=== PATIENT | female | born 1975 | race Hispanic/Latino ===

== ENCOUNTER 2022-02-15 16:10 | Emergency (ER) | payer MEDICAID ==
--- NOTE | 2022-02-15 18:09 | Emergency Department Report ---
ED General Adult HPI - General Chief complaint: Seizure Stated complaint: SEIZURE Time Seen by Provider: 02/15/22 16:48 Source: EMS Mode of arrival: Stretcher Limitations: No Limitations - History of Present Illness Initial comments: Patient is a 46-year-old female who presents with seizure she states that she has had seizures before. She has had 3 in the last month. She is not on any antiseizure epileptic medication. She is currently awake and alert oriented by 3. She denies having any pain no nausea or vomiting. Severity scale (0 -10): 0 - Related Data Previous Rx's Medication Instructions Recorded Last Taken Type levETIRAcetam [Keppra TAB] 500 mg PO BID #60 tablet 02/15/22 Unknown Rx ED Review of Systems ROS: Stated complaint: SEIZURE Other details as noted in HPI Constitutional: denies: chills, fever Eyes: denies: eye pain, eye discharge, vision change ENT: denies: ear pain, throat pain Respiratory: denies: cough, shortness of breath, wheezing Cardiovascular: denies: chest pain, palpitations Endocrine: no symptoms reported Gastrointestinal: denies: abdominal pain, nausea, diarrhea Genitourinary: denies: urgency, dysuria, discharge Musculoskeletal: denies: back pain, joint swelling, arthralgia Skin: denies: rash, lesions Neurological: denies: headache, weakness, paresthesias Psychiatric: denies: anxiety, depression Hematological/Lymphatic: denies: easy bleeding, easy bruising ED Past Medical Hx - Past Medical History Hx Seizures: Yes - Surgical History Past Surgical History?: Yes Additional Surgical History: cyst removal neck 2018 - Medications Home Medications: Home Medications Medication Instructions Recorded Confirmed Last Taken Type levETIRAcetam [Keppra TAB] 500 mg PO BID #60 tablet 02/15/22 Unknown Rx ED Physical Exam - General Limitations: No Limitations General appearance: alert, in no apparent distress - Head Head exam: Present: atraumatic, normocephalic - Eye Eye exam: Present: normal appearance - ENT ENT exam: Present: mucous membranes moist - Neck Neck exam: Present: normal inspection - Respiratory Respiratory exam: Present: normal lung sounds bilaterally. Absent: respiratory distress - Cardiovascular Cardiovascular Exam: Present: regular rate, normal rhythm. Absent: systolic murmur, diastolic murmur, rubs, gallop - GI/Abdominal GI/Abdominal exam: Present: soft, normal bowel sounds - Extremities Exam Extremities exam: Present: normal inspection - Back Exam Back exam: Present: normal inspection - Neurological Exam Neurological exam: Present: alert, oriented X3 - Psychiatric Psychiatric exam: Present: normal affect, normal mood - Skin Skin exam: Present: warm, dry, intact, normal color. Absent: rash ED Course Vital Signs 02/15/22 16:28 Temperature 98.2 F Pulse Rate 128 H Respiratory 16 Rate Blood Pressure 151/117 [Left] O2 Sat by Pulse 98 Oximetry ED Medical Decision Making - Medical Decision Making Chief medical diagnosis: Seizure Differential medical diagnosis: Medication noncompliance, near syncope I will give the patient oral Keppra Zofran and I will get an EKG. Critical care attestation.: If time is entered above; I have spent that time in minutes in the direct care of this critically ill patient, excluding procedure time. ED Disposition Clinical Impression: Seizure Disposition: 01 HOME / SELF CARE / HOMELESS Is pt being admited?: No Does the pt Need Aspirin: No Condition: Stable Instructions: Epilepsy Prescriptions: levETIRAcetam [Keppra TAB] 500 mg PO BID #60 tablet
[2022-02-15] MEDS ORDERED: ONDANSETRON 4 MG ODT TAB PO ONE (19:00)
[2022-02-15] MEDS ORDERED: levETIRAcetam 500 MG TAB PO ONE (19:00)
[2022-02-15 20:32] VITALS: BP 116/78
--- NOTE | 2022-02-16 10:42 | Electrocardiograph Report ---
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
== END 2022-02-15 20:45 | disposition home or self-care (01) ==
LOC: ED 16:10
DX: R56.9 Unspecified convulsions (principal)
CPT/HCPCS: 93005; 99283; J3490; Q0162